=== PATIENT | male | born 1980 | race African-American/Black ===

== ENCOUNTER 2016-11-10 07:53 | Emergency (ER) | payer MEDICAID ==
[~2016-11-10] VITALS: Ht 198.1 cm; Wt 127.5 kg
[2016-11-10] MEDS ORDERED: MORPHINE SULFATE 4 MG/ML CPJ (NOT FOR IM USE) IV STA (08:42)
[2016-11-10] MEDS ORDERED: SODIUM CHLORIDE 0.9% 1,000 ML IV ONE (08:42)
[2016-11-10] MEDS ORDERED: ONDANSETRON HCL 4MG/2ML VIAL IV STA (08:42)
[2016-11-10 09:02] LABS: BASOPHILS % 0.7 % (0.0-2.0); HEMATOCRIT. 39.7 % (42.0-52.0); HEMOGLOBIN. 13.6 g/dL (14.0-18.0); LYMPHOCYTES % 29.5 % (20.0-50.0); MEAN CORPUSCULAR HEMOGLOBIN 32.3 pg (28.0-32.0); MEAN CORPUSCULAR HGB CONC 34.1 g/dL (31.0-37.0); MEAN CORPUSCULAR VOLUME 94.6 fL (80.0-94.0); MEAN PLATELET VOLUME 8.9 fl (7.4-10.4); MONOCYTES % 7.7 % (2.0-8.0); NEUTROPHILS % 61.1 % (40.0-76.0); PLATELET 195 x1000/uL (130-400); RED CELL DISTRIBUTION WIDTH 13.7 % (11.6-14.6); WHITE BLOOD COUNT 4.6 x1000/uL (4.5-11.0)
[2016-11-10 09:04] LABS: CHLORIDE 112 mEq/L (98-107); INDEX HEMOLYSI 1 (1-3); INDEX ICTERIC 1 (1-4); INDEX LIPEMIC 1 (1-3)
[2016-11-10 09:07] LABS: INR 0.9; PROTHROMBIN TIME 9.7 sec
[2016-11-10 09:10] LABS: ALBUMIN 3.4 g/dL (3.4-5.0); ANION GAP 11; CARBON DIOXIDE 26 mEq/L (21-32); LIPASE 264 IU/L (73-393); UREA NITROGEN BLOOD 14 mg/dL (7-21)
[2016-11-10 09:13] LABS: ALANINE AMINOTRANSFERASE 39 IU/L (13-61); AMYLASE 109 IU/L (25-115); eGFR > 60 mL/min (>60)
[2016-11-10] MEDS ORDERED: MORPHINE SULFATE 4 MG/ML CPJ (NOT FOR IM USE) IV ONE (09:30)
[2016-11-10] MEDS ORDERED: MAGNESIUM/ALUMINUM HYDROXIDE/SIMETHICONE 30ML UDC PO NR (09:30)
[2016-11-10] MEDS ORDERED: FAMOTIDINE 20MG/2ML VIAL IV NR (09:30)
[2016-11-10 09:40] VITALS: BP 151/95
[2016-11-10] MEDS ORDERED: DICYCLOMINE 10 MG/5 ML ORAL SYR PO STA (11:31)
[2016-11-10] MEDS ORDERED: ONDANSETRON 4MG ODT PO ONE (12:00)
== END 2016-11-10 12:42 | disposition home or self-care (01) ==
LOC: ER 09:54
DX: R10.13 Epigastric pain (principal); R11.10 Vomiting, unspecified; R19.7 Diarrhea, unspecified; F17.210 Nicotine dependence, cigarettes, uncomplicated; F12.90 Cannabis use, unspecified, uncomplicated; Z88.6 Allergy status to analgesic agent; Z87.828 Personal history of other (healed) physical injury and trauma
CPT/HCPCS: 36415; 76705; 80053; 82150; 83690; 85025; 85610; 96361; 96374; 96375; 96376; 99285; J2270; J2405; J3490; J7030; Q0162; Z7610

== ENCOUNTER 2017-03-14 11:08 | Emergency (ER) | payer MEDICAID ==
[~2017-03-14] VITALS: Ht 175.3 cm; Wt 85.0 kg
[2017-03-14] MEDS ORDERED: SODIUM CHLORIDE 0.9% 1,000 ML IV ONE (11:44)
[2017-03-14] MEDS ORDERED: ONDANSETRON HCL 4MG/2ML VIAL IV STA (11:44)
[2017-03-14 12:39] LABS: BASOPHILS % 0.3 % (0.0-2.0); EOSINOPHILS % 0.1 % (0.0-5.0); HEMOGLOBIN. 13.2 g/dL (14.0-18.0); LYMPHOCYTES % 17.8 % (20.0-50.0); MEAN CORPUSCULAR HEMOGLOBIN 31.8 pg (28.0-32.0); MEAN CORPUSCULAR VOLUME 93.9 fL (80.0-94.0); MEAN PLATELET VOLUME 8.1 fl (7.4-10.4); MONOCYTES % 5.7 % (2.0-8.0); NEUTROPHILS % 76.1 % (40.0-76.0); PLATELET 197 x1000/uL (130-400); RED BLOOD CELL COUNT 4.15 mill/uL (4.7-6.1); RED CELL DISTRIBUTION WIDTH 13.5 % (11.6-14.6)
[2017-03-14 12:50] LABS: CARBON DIOXIDE 28 mEq/L (21-32); CHLORIDE 107 mEq/L (98-107)
[2017-03-14] MEDS ORDERED: METOCLOPRAMIDE HCL 10MG/2ML VIAL IV ONE (13:45)
[2017-03-14] MEDS ORDERED: ONDANSETRON HCL 4MG/2ML VIAL IV ONE (13:45)
[2017-03-14] MEDS ORDERED: KETOROLAC 30MG/ML VIAL IV ONE (14:30)
[2017-03-14 14:50] LABS: CLARITY URINE CLOUDY (CLEAR); COLOR URINE YELLOW (YELLOW); GLUCOSE URINE NEGATIVE (NEGATIVE); KETONES URINE 1+ (NEGATIVE); LEUKOCYTE ESTERASE URINE NEGATIVE (NEGATIVE); NITRITE URINE NEGATIVE (NEGATIVE); OCCULT BLOOD URINE NEGATIVE (NEGATIVE); PH URINE 8.5 (4.5-8.0); PROTEIN URINE NEGATIVE (NEGATIVE); SPECIFIC GRAVITY URINE 1.019 (1.005-1.030)
[2017-03-14 15:00] VITALS: BP 132/84
[2017-03-14 15:12] LABS: *AMPHETAMINES SCREEN URINE NEGATIVE (NEGATIVE); *BARBITURATES SCREEN URINE NEGATIVE (NEGATIVE); *BENZODIAZEPINES SCREEN URINE PRESUMTIVE POSITIVE (NEGATIVE); *COCAINE SCREEN URINE PRESUMTIVE POSITIVE (NEGATIVE); CANNABINOID URINE SCREEN PRESUMTIVE POSITIVE (NEGATIVE); METHADONE URINE SCREEN NEGATIVE (NEGATIVE); OPIATES URINE SCREEN NEGATIVE (NEGATIVE); PHENCYCLIDINE URINE SCREEN NEGATIVE (NEGATIVE)
== END 2017-03-14 16:11 | disposition home or self-care (01) ==
LOC: ER 11:18
DX: G43.A0 Cyclical vomiting, in migraine, not intractable (principal); F12.10 Cannabis abuse, uncomplicated; R10.13 Epigastric pain; Z88.6 Allergy status to analgesic agent
CPT/HCPCS: 36415; 80053; 80305; 81001; 83690; 85025; 96374; 96375; 96376; 99284; G0482; J1885; J2405; J2765; J7030; Z7610

== ENCOUNTER 2017-05-11 08:06 | Inpatient (IN) | payer MEDICAID ==
[~2017-05-11] VITALS: Ht 198.1 cm; Wt 132.4 kg
[2017-05-11] MEDS ORDERED: ONDANSETRON HCL 4MG/2ML VIAL IV STA (08:15)
[2017-05-11] MEDS ORDERED: FAMOTIDINE 20MG/2ML VIAL IV STA (08:15)
[2017-05-11] MEDS ORDERED: SODIUM CHLORIDE 0.9% 1,000 ML IV ONE (08:15)
[2017-05-11] MEDS ORDERED: MORPHINE SULFATE 4 MG/ML CPJ (NOT FOR IM USE) IV STA (08:15)
[2017-05-11 08:39] LABS: BASOPHILS % 0.3 % (0.0-2.0); HEMATOCRIT. 35.5 % (42.0-52.0); HEMOGLOBIN. 12.1 g/dL (14.0-18.0); LYMPHOCYTES % 12.2 % (20.0-50.0); MEAN CORPUSCULAR VOLUME 93.9 fL (80.0-94.0); MEAN PLATELET VOLUME 8.2 fl (7.4-10.4); MONOCYTES % 6.1 % (2.0-8.0); NEUTROPHILS % 81.4 % (40.0-76.0); PLATELET 195 x1000/uL (130-400); RED BLOOD CELL COUNT 3.78 mill/uL (4.7-6.1); RED CELL DISTRIBUTION WIDTH 13.7 % (11.6-14.6)
[2017-05-11 08:56] LABS: CARBON DIOXIDE 27 mEq/L (21-32); CHLORIDE 106 mEq/L (98-107); ETHANOL BLOOD < 10 mg/dL; TROPONIN I < 0.02 ng/mL (0.00-0.04)
[2017-05-11] MEDS ORDERED: CEFTRIAXONE 1 G PREMIX 50 ML IV ONE (09:15)
[2017-05-11] MEDS ORDERED: METRONIDAZOLE 500 MG PREMIX 100 ML IV ONE (09:15)
[2017-05-11] MEDS ORDERED: SODIUM CHLORIDE 0.9% 1000ML BAG (SEPSIS BOLUS) IV ONE (09:15)
[2017-05-11 09:19] LABS: PROTHROMBIN TIME 10.8 sec (9.4-11.6)
[2017-05-11 11:11] LABS: CLARITY URINE CLEAR (CLEAR); COLOR URINE YELLOW (YELLOW); GLUCOSE URINE NEGATIVE (NEGATIVE); KETONES URINE NEGATIVE (NEGATIVE); LEUKOCYTE ESTERASE URINE NEGATIVE (NEGATIVE); NITRITE URINE NEGATIVE (NEGATIVE); OCCULT BLOOD URINE NEGATIVE (NEGATIVE); PH URINE >=9.0 (4.5-8.0); PROTEIN URINE NEGATIVE (NEGATIVE); SPECIFIC GRAVITY URINE 1.017 (1.005-1.030); UROBILINOGEN URINE 0.2 E.U./dL (0.2-1.0)
[2017-05-11] MEDS ORDERED: IOHEXOL-300 100 ML BOTTLE ONE (11:53)
[2017-05-11 12:02] LABS: *AMPHETAMINES SCREEN URINE NEGATIVE (NEGATIVE); *BARBITURATES SCREEN URINE NEGATIVE (NEGATIVE); *BENZODIAZEPINES SCREEN URINE NEGATIVE (NEGATIVE); *COCAINE SCREEN URINE PRESUMTIVE POSITIVE (NEGATIVE); CANNABINOID URINE SCREEN PRESUMTIVE POSITIVE (NEGATIVE); METHADONE URINE SCREEN NEGATIVE (NEGATIVE); OPIATES URINE SCREEN NEGATIVE (NEGATIVE); PHENCYCLIDINE URINE SCREEN NEGATIVE (NEGATIVE)
[2017-05-11] MEDS ORDERED: SODIUM CHLORIDE 0.9% 1,000 ML IV SCH (12:52)
[2017-05-11] MEDS ORDERED: ACETAMINOPHEN 325MG TABLET PO PRN (14:15)
[2017-05-11] MEDS ORDERED: IPRATROPIUM/ALBUTEROL 0.5-3(2.5)MG/3ML NEB INH PRN (14:15)
[2017-05-11] MEDS ORDERED: HYDROCODONE/ACETAMINOPHEN 5/325MG TABLET PO PRN (14:15)
[2017-05-11] MEDS ORDERED: ONDANSETRON HCL 4MG/2ML VIAL IV PRN (14:15)
[2017-05-11] MEDS ORDERED: CLONIDINE 0.1MG TABLET PO PRN (14:15)
[2017-05-11] MEDS ORDERED: DIPHENHYDRAMINE 50MG/ML VIAL IV PRN (14:15)
[2017-05-11] MEDS ORDERED: PANTOPRAZOLE SODIUM 40 MG/VIAL IV SCH (14:15)
[2017-05-11] MEDS ORDERED: MORPHINE SULFATE 4 MG/ML CPJ (NOT FOR IM USE) IV PRN (14:15)
[2017-05-11 16:00] VITALS: BP 122/68
[2017-05-11] MEDS ORDERED: SODIUM CHLORIDE 0.9% 500 ML IV NR (16:00)
[2017-05-11 16:40] VITALS: BP 122/68
[2017-05-11] MEDS: METOCLOPRAMIDE HCL 10MG/2ML VIAL IV SCH (18:39)
[2017-05-11] MEDS: SODIUM CHLORIDE 0.9% 1,000 ML IV SCH (18:40)
[2017-05-11 20:00] VITALS: BP 111/64
[2017-05-12] VITALS: BP 109/68
[2017-05-12] MEDS: METOCLOPRAMIDE HCL 10MG/2ML VIAL IV SCH ×2 (00:37→05:42)
[2017-05-12 04:00] VITALS: BP 110/57
[2017-05-12] MEDS: SODIUM CHLORIDE 0.9% 1,000 ML IV SCH (05:42)
[2017-05-12 06:39] LABS: BASOPHILS % 0.3 % (0.0-2.0); EOSINOPHILS % 0.2 % (0.0-5.0); HEMATOCRIT. 36.4 % (42.0-52.0); HEMOGLOBIN. 12.3 g/dL (14.0-18.0); LYMPHOCYTES % 23.2 % (20.0-50.0); MEAN CORPUSCULAR HEMOGLOBIN 31.6 pg (28.0-32.0); MEAN CORPUSCULAR VOLUME 93.6 fL (80.0-94.0); MEAN PLATELET VOLUME 8.5 fl (7.4-10.4); MONOCYTES % 9.1 % (2.0-8.0); NEUTROPHILS % 67.2 % (40.0-76.0); PLATELET 183 x1000/uL (130-400); RED BLOOD CELL COUNT 3.89 mill/uL (4.7-6.1); RED CELL DISTRIBUTION WIDTH 13.4 % (11.6-14.6)
[2017-05-12 07:34] LABS: CARBON DIOXIDE 26 mEq/L (21-32); CHLORIDE 106 mEq/L (98-107); HDL CHOLESTEROL 43 mg/dL (40-59); LDL CHOLESTEROL 142 mg/dL (5-100)
[2017-05-12] MEDS ORDERED: POTASSIUM CHLORIDE 20MEQ/PACKET PO SCH (09:00)
== END 2017-05-12 09:10 | disposition left against medical advice (07) | DRG 251 ==
LOC: ER 08:19 → 5WST 12:53 → EDBEDREQ 12:57 → ENRESERV 13:36
PROVIDERS: ADMIT Internal Medicine; ATTEND Internal Medicine
DX: R10.9 Unspecified abdominal pain (principal); E87.2 Acidosis; I10 Essential (primary) hypertension; R73.9 Hyperglycemia, unspecified; D64.9 Anemia, unspecified; F19.10 Other psychoactive substance abuse, uncomplicated; R19.7 Diarrhea, unspecified; R11.2 Nausea with vomiting, unspecified; Z53.21 Procedure and treatment not carried out due to patient leaving prior to being seen by health care provider
CPT/HCPCS: 36415; 71010; 74177; 80053; 80061; 80305; 81003; 82270; 83036; 83605; 83690; 83880; 84484; 85025; 85610; 87015; 87040; 87045; 87086; 87427; 87449; 87493; 89055; 93005; 96361; 96365; 96366; 96367; 96375; 99291; C9113; G0482; J0696; J2270; J2405; J2765; J3490; J7030; Q9967

== ENCOUNTER 2017-05-12 10:27 | Inpatient (IN) | payer MEDICAID ==
[~2017-05-12] VITALS: Ht 198.1 cm; Wt 136.1 kg
[2017-05-12] MEDS ORDERED: FAMOTIDINE 20MG/2ML VIAL IV STA (12:13)
[2017-05-12] MEDS ORDERED: MORPHINE SULFATE 4 MG/ML CPJ (NOT FOR IM USE) IV STA (12:13)
[2017-05-12] MEDS ORDERED: ONDANSETRON HCL 4MG/2ML VIAL IV STA (12:13)
[2017-05-12] MEDS ORDERED: SODIUM CHLORIDE 0.9% 1,000 ML IV ONE (12:13)
[2017-05-12 13:01] LABS: BASOPHILS % 0.2 % (0.0-2.0); HEMATOCRIT. 36.4 % (42.0-52.0); HEMOGLOBIN. 12.4 g/dL (14.0-18.0); LYMPHOCYTES % 13.4 % (20.0-50.0); MEAN CORPUSCULAR HEMOGLOBIN 31.7 pg (28.0-32.0); MEAN CORPUSCULAR VOLUME 92.9 fL (80.0-94.0); MEAN PLATELET VOLUME 8.3 fl (7.4-10.4); NEUTROPHILS % 80.4 % (40.0-76.0); PLATELET 181 x1000/uL (130-400); RED BLOOD CELL COUNT 3.91 mill/uL (4.7-6.1); RED CELL DISTRIBUTION WIDTH 13.3 % (11.6-14.6)
[2017-05-12 13:07] LABS: CHLORIDE 108 mEq/L (98-107)
[2017-05-12 13:09] LABS: INR 1.1; PROTHROMBIN TIME 11.7 sec (9.4-11.6)
[2017-05-12 13:16] LABS: CARBON DIOXIDE 25 mEq/L (21-32)
[2017-05-12] MEDS ORDERED: KCL 10MEQ/50ML PREMIX 50 ML IV ONE (14:00)
[2017-05-12] MEDS ORDERED: METOCLOPRAMIDE HCL 10MG/2ML VIAL IV ONE (16:00)
[2017-05-12 16:30] LABS: CLARITY URINE CLEAR (CLEAR); COLOR URINE YELLOW (YELLOW); GLUCOSE URINE NEGATIVE (NEGATIVE); KETONES URINE 1+ (NEGATIVE); LEUKOCYTE ESTERASE URINE NEGATIVE (NEGATIVE); NITRITE URINE NEGATIVE (NEGATIVE); OCCULT BLOOD URINE NEGATIVE (NEGATIVE); PROTEIN URINE NEGATIVE (NEGATIVE); SPECIFIC GRAVITY URINE 1.014 (1.005-1.030); UROBILINOGEN URINE 0.2 E.U./dL (0.2-1.0)
[2017-05-12] MEDS ORDERED: KETOROLAC 30MG/ML VIAL IV ONE (16:30)
[2017-05-12 16:59] LABS: *AMPHETAMINES SCREEN URINE NEGATIVE (NEGATIVE); *BARBITURATES SCREEN URINE NEGATIVE (NEGATIVE); *BENZODIAZEPINES SCREEN URINE NEGATIVE (NEGATIVE); *COCAINE SCREEN URINE PRESUMTIVE POSITIVE (NEGATIVE); CANNABINOID URINE SCREEN PRESUMTIVE POSITIVE (NEGATIVE); METHADONE URINE SCREEN NEGATIVE (NEGATIVE); OPIATES URINE SCREEN PRESUMTIVE POSITIVE (NEGATIVE); PHENCYCLIDINE URINE SCREEN NEGATIVE (NEGATIVE)
[2017-05-12 22:35] VITALS: BP 138/75
[2017-05-12 23:18] VITALS: BP 138/75
[2017-05-12] MEDS ORDERED: LORAZEPAM 2MG/ML CPJ IV PRN (23:45)
[2017-05-12] MEDS ORDERED: HYDROCODONE/ACETAMINOPHEN 5/325MG TABLET PO PRN (23:45)
[2017-05-12] MEDS ORDERED: SODIUM CHLORIDE 0.9% 1,000 ML IV SCH (23:45)
[2017-05-12] MEDS ORDERED: MORPHINE SULFATE 4 MG/ML CPJ (NOT FOR IM USE) IV PRN (23:45)
[2017-05-12] MEDS ORDERED: ONDANSETRON HCL 4MG/2ML VIAL IV PRN (23:45)
[2017-05-12] MEDS ORDERED: ACETAMINOPHEN 325MG TABLET PO PRN (23:45)
[2017-05-13 04:00] VITALS: BP 134/92
[2017-05-13] MEDS: POTASSIUM CHLORIDE 20MEQ TABLET SR PO SCH ×2 (05:37→09:00)
[2017-05-13 08:00] VITALS: BP 160/100
[2017-05-13] MEDS ORDERED: ENOXAPARIN 40MG/0.4ML SYR SUBCUT SCH (09:00)
[2017-05-13] MEDS ORDERED: FOLIC ACID 1MG TABLET PO SCH (09:00)
[2017-05-13 12:00] VITALS: BP 140/74
[2017-05-13 14:17] VITALS: BP 130/92
== END 2017-05-13 14:30 | disposition home or self-care (01) | DRG 251 ==
LOC: ER 10:46 → EDBEDREQ 14:14 → 6EST 14:19 → EDBEDREQTM 14:21 → EDBEDREQ 14:21 → ENRESERV 18:23
PROVIDERS: ADMIT Internal Medicine Nephrology; ATTEND Internal Medicine Nephrology
DX: R10.9 Unspecified abdominal pain (principal); E87.5 Hyperkalemia; I10 Essential (primary) hypertension; F14.10 Cocaine abuse, uncomplicated; F11.10 Opioid abuse, uncomplicated; F12.10 Cannabis abuse, uncomplicated; Z96.649 Presence of unspecified artificial hip joint; Z87.891 Personal history of nicotine dependence; Z72.89 Other problems related to lifestyle
CPT/HCPCS: 36415; 80053; 80305; 81003; 83605; 83690; 85025; 85610; 99285; J1650; J1885; J2270; J2405; J2765; J3480; J3490; J7030

== ENCOUNTER 2018-07-16 06:28 | Emergency (ER) | payer MEDICAID ==
[~2018-07-16] VITALS: Ht 198.1 cm; Wt 132.0 kg
[2018-07-16] MEDS ORDERED: FAMOTIDINE 20MG/2ML VIAL IV STA (07:17)
[2018-07-16] MEDS ORDERED: MORPHINE SULFATE 4 MG/ML CPJ (NOT FOR IM USE) IV STA (07:17)
[2018-07-16] MEDS ORDERED: SODIUM CHLORIDE 0.9% 1,000 ML IV ONE (07:17)
[2018-07-16] MEDS ORDERED: METOCLOPRAMIDE HCL 10MG/2ML VIAL IV STA (07:17)
[2018-07-16 07:36] LABS: CLARITY URINE CLEAR (CLEAR); COLOR URINE YELLOW (YELLOW); KETONES URINE NEGATIVE (NEGATIVE); LEUKOCYTE ESTERASE URINE NEGATIVE (NEGATIVE); NITRITE URINE NEGATIVE (NEGATIVE); OCCULT BLOOD URINE NEGATIVE (NEGATIVE); PH URINE 7.5 (4.5-8.0); PROTEIN URINE TRACE (NEGATIVE); SPECIFIC GRAVITY URINE 1.022 (1.005-1.030)
[2018-07-16] MEDS ORDERED: MORPHINE SULFATE 10 MG/ML CPJ IV STA (08:40)
[2018-07-16 09:07] LABS: BASOPHILS % 0.5 % (0.0-2.0); HEMATOCRIT. 40.2 % (42.0-52.0); HEMOGLOBIN. 13.8 g/dL (14.0-18.0); LYMPHOCYTES % 15.9 % (20.0-50.0); MEAN CORPUSCULAR HEMOGLOBIN 32.3 pg (28.0-32.0); MEAN CORPUSCULAR VOLUME 93.9 fL (80.0-94.0); MEAN PLATELET VOLUME 8.2 fl (7.4-10.4); MONOCYTES % 5.5 % (2.0-8.0); NEUTROPHILS % 78.1 % (40.0-76.0); PLATELET 259 x1000/uL (130-400); RED BLOOD CELL COUNT 4.28 mill/uL (4.7-6.1); RED CELL DISTRIBUTION WIDTH 13.5 % (11.6-14.6)
[2018-07-16 09:11] LABS: CHLORIDE 105 mEq/L (98-107)
[2018-07-16 09:13] LABS: INR 1.1
[2018-07-16] MEDS ORDERED: IOHEXOL-300 100 ML BOTTLE ONE (09:55)
[2018-07-16] MEDS ORDERED: KETOROLAC 30MG/ML VIAL IV ONE (10:15)
[2018-07-16 11:30] VITALS: BP 118/64
== END 2018-07-16 11:37 | disposition home or self-care (01) ==
LOC: ER 06:28
DX: N39.0 Urinary tract infection, site not specified (principal); R10.84 Generalized abdominal pain; R11.2 Nausea with vomiting, unspecified; R16.0 Hepatomegaly, not elsewhere classified; J45.909 Unspecified asthma, uncomplicated; I10 Essential (primary) hypertension
CPT/HCPCS: 36415; 74177; 80053; 81003; 83690; 85025; 85610; 86850; 86900; 86901; 87086; 96361; 96374; 96375; 99284; J1885; J2270; J2765; J3490; J7030; Q9967

== ENCOUNTER 2018-11-11 08:42 | Inpatient (IN) | payer MEDICAID ==
[~2018-11-11] VITALS: Ht 198.1 cm; Wt 135.2 kg
[2018-11-11] MEDS ORDERED: METOCLOPRAMIDE HCL 10MG/2ML VIAL IV STA (09:06)
[2018-11-11] MEDS ORDERED: SODIUM CHLORIDE 0.9% 1,000 ML IV ONE (09:06)
[2018-11-11 09:44] LABS: BASOPHILS % 0.4 % (0.0-2.0); EOSINOPHILS % 0.3 % (0.0-5.0); HEMATOCRIT. 39.8 % (42.0-52.0); HEMOGLOBIN. 13.6 g/dL (14.0-18.0); LYMPHOCYTES % 19.9 % (20.0-50.0); MEAN CORPUSCULAR HEMOGLOBIN 32.6 pg (28.0-32.0); MEAN CORPUSCULAR VOLUME 95.1 fL (80.0-94.0); MEAN PLATELET VOLUME 8.6 fl (7.4-10.4); MONOCYTES % 6.9 % (2.0-8.0); NEUTROPHILS % 72.5 % (40.0-76.0); PLATELET 189 x1000/uL (130-400); RED BLOOD CELL COUNT 4.18 mill/uL (4.7-6.1); RED CELL DISTRIBUTION WIDTH 13.8 % (11.6-14.6)
[2018-11-11 09:46] LABS: CHLORIDE 109 mEq/L (98-107)
[2018-11-11 09:47] LABS: PROTHROMBIN TIME 9.9 sec (9.6-11.0)
[2018-11-11] MEDS ORDERED: KETOROLAC 30MG/ML VIAL IV ONE (10:15)
[2018-11-11 10:33] LABS: CLARITY URINE CLEAR (CLEAR); COLOR URINE YELLOW (YELLOW); KETONES URINE NEGATIVE (NEGATIVE); LEUKOCYTE ESTERASE URINE 1+ (NEGATIVE); NITRITE URINE NEGATIVE (NEGATIVE); OCCULT BLOOD URINE NEGATIVE (NEGATIVE); PH URINE >=9.0 (4.5-8.0); PROTEIN URINE NEGATIVE (NEGATIVE); SPECIFIC GRAVITY URINE 1.018 (1.005-1.030); UROBILINOGEN URINE 0.2 E.U./dL (0.2-1.0)
[2018-11-11] MEDS ORDERED: LORAZEPAM 2MG/ML CPJ IV ONE (11:00)
[2018-11-11] MEDS ORDERED: MORPHINE SULFATE 4 MG/ML CPJ (NOT FOR IM USE) IV STA ×2 (13:38→14:11)
[2018-11-11] MEDS ORDERED: ONDANSETRON HCL 4MG/2ML INJ IV STA ×2 (13:38→14:11)
[2018-11-11] MEDS ORDERED: CEFTRIAXONE 1 G PREMIX 50 ML IV ONE (14:00)
[2018-11-11 19:35] VITALS: BP 172/83
[2018-11-11 20:00] VITALS: BP 172/83
[2018-11-11] MEDS ORDERED: CLONIDINE 0.1MG TABLET PO PRN ×2 (20:45→21:00)
[2018-11-11] MEDS ORDERED: HYDRALAZINE 10 MG in SODIUM CHLORIDE 0.9% 49.5 ML IV PRN (20:45)
[2018-11-11] MEDS ORDERED: MORPHINE SULFATE 2 MG/ML CPJ (NOT FOR IM USE) IV PRN (20:45)
[2018-11-11] MEDS ORDERED: IPRATROPIUM/ALBUTEROL 0.5-3(2.5)MG/3ML NEB INH PRN (21:00)
[2018-11-11] MEDS ORDERED: HYDROCODONE/ACETAMINOPHEN 5/325MG TABLET PO PRN (21:00)
[2018-11-11] MEDS ORDERED: PANTOPRAZOLE SODIUM 40 MG/VIAL IV SCH (21:00)
[2018-11-11] MEDS ORDERED: LORAZEPAM 0.5MG TABLET PO PRN (21:00)
[2018-11-11] MEDS: ONDANSETRON HCL 4MG/2ML INJ IV PRN (21:16)
[2018-11-11] MEDS: MORPHINE SULFATE 4 MG/ML CPJ (NOT FOR IM USE) IV PRN (21:16)
[2018-11-11 23:38] LABS: *COCAINE SCREEN URINE PRESUMTIVE POSITIVE (NEGATIVE)
[2018-11-11 23:39] LABS: *AMPHETAMINES SCREEN URINE NEGATIVE (NEGATIVE); *BARBITURATES SCREEN URINE NEGATIVE (NEGATIVE); CANNABINOID URINE SCREEN PRESUMTIVE POSITIVE (NEGATIVE); METHADONE URINE SCREEN NEGATIVE (NEGATIVE); OPIATES URINE SCREEN PRESUMTIVE POSITIVE (NEGATIVE); PHENCYCLIDINE URINE SCREEN NEGATIVE (NEGATIVE)
[2018-11-11 23:40] LABS: *BENZODIAZEPINES SCREEN URINE NEGATIVE (NEGATIVE)
[2018-11-12] VITALS: BP 140/66
[2018-11-12] MEDS ORDERED: ZOLPIDEM TARTRATE 5MG TABLET PO PRN
[2018-11-12] MEDS ORDERED: AMLO5TAB4 PO (01:04)
[2018-11-12] MEDS: ONDANSETRON HCL 4MG/2ML INJ IV PRN (03:38)
[2018-11-12] MEDS: MORPHINE SULFATE 4 MG/ML CPJ (NOT FOR IM USE) IV PRN (03:38)
[2018-11-12 04:00] VITALS: BP 173/82
[2018-11-12 05:18] LABS: BASOPHILS % 0.2 % (0.0-2.0); HEMATOCRIT. 41.8 % (42.0-52.0); HEMOGLOBIN. 14.2 g/dL (14.0-18.0); LYMPHOCYTES % 16.3 % (20.0-50.0); MEAN CORPUSCULAR HEMOGLOBIN 32.4 pg (28.0-32.0); MEAN CORPUSCULAR VOLUME 95.2 fL (80.0-94.0); MEAN PLATELET VOLUME 8.9 fl (7.4-10.4); MONOCYTES % 8.8 % (2.0-8.0); NEUTROPHILS % 74.7 % (40.0-76.0); PLATELET 218 x1000/uL (130-400); RED BLOOD CELL COUNT 4.39 mill/uL (4.7-6.1); RED CELL DISTRIBUTION WIDTH 14.1 % (11.6-14.6)
[2018-11-12 07:40] LABS: CHLORIDE 105 mEq/L (98-107)
[2018-11-12 08:00] VITALS: BP 104/65
[2018-11-12] MEDS ORDERED: POTASSIUM CHLORIDE 20MEQ TABLET SR PO NR (09:24)
[2018-11-12 12:00] VITALS: BP 111/74
[2018-11-12 13:22] LABS: HEPATITIS B SURFACE ANTIGEN NEGATIVE
[2018-11-12 13:52] LABS: HEPATITIS A AB IGM NEGATIVE (NEGATIVE)
[2018-11-13 05:29] LABS: HIV SCREEN 4G Non Reactive (Non Reactive)
[2018-11-24 06:10] LABS: BARBITURATE SCREEN Negative ug/mL (Cutoff:0.1); BENZODIAZEPINE SCREEN Negative ng/mL (Cutoff:20); OPIATES SCREEN ++POSITIVE++ ng/mL (Cutoff:5); PHENCYCLIDINE SCREEN Negative ng/mL (Cutoff:8)
== END 2018-11-12 11:50 | disposition left against medical advice (07) | DRG 241 ==
LOC: ER 08:42 → 6EST 13:51 → EDBEDREQSVC 14:03 → EDBEDREQ 14:03 → EDBEDREQTM 14:03 → ENRESERV 15:23
PROVIDERS: ADMIT Internal Medicine; ATTEND Internal Medicine
DX: K29.20 Alcoholic gastritis without bleeding (principal); K75.9 Inflammatory liver disease, unspecified; E11.9 Type 2 diabetes mellitus without complications; F12.90 Cannabis use, unspecified, uncomplicated; I10 Essential (primary) hypertension; J45.909 Unspecified asthma, uncomplicated; Z91.19 Patient's noncompliance with other medical treatment and regimen; Z87.81 Personal history of (healed) traumatic fracture
CPT/HCPCS: 36415; 71045; 74176; 76700; 80048; 80076; 80305; 80307; 83036; 83880; 84484; 86141; 86705; 86709; 86803; 87077; 87340; 87389; 93005; 96361; 96365; 96375; 99285; C9113; J0696; J1885; J2060; J2270; J2405; J2765; J7030

== ENCOUNTER 2019-01-26 18:51 | Inpatient (IN) | payer MEDICAID ==
[~2019-01-26] VITALS: Ht 198.1 cm; Wt 127.0 kg
[~2019-01-26 18:51] MED LIST: AMLO5TAB4 PO
[2019-01-26] MEDS ORDERED: ONDANSETRON HCL 4MG/2ML INJ IV STA (19:38)
[2019-01-26] MEDS ORDERED: MORPHINE SULFATE 4 MG/ML CPJ (NOT FOR IM USE) IV STA (19:38)
[2019-01-26] MEDS ORDERED: KETOROLAC 30MG/ML VIAL IV STA (19:38)
[2019-01-26] MEDS ORDERED: SODIUM CHLORIDE 0.9% 1,000 ML IV ONE ×2 (19:38→22:15)
[2019-01-26 20:17] LABS: CHLORIDE 105 mEq/L (98-107)
[2019-01-26 20:18] LABS: BASOPHILS % 0.4 % (0.0-2.0); HEMATOCRIT. 39.3 % (42.0-52.0); HEMOGLOBIN. 13.7 g/dL (14.0-18.0); LYMPHOCYTES % 10.3 % (20.0-50.0); MEAN CORPUSCULAR HEMOGLOBIN 32.9 pg (28.0-32.0); MEAN CORPUSCULAR VOLUME 94.7 fL (80.0-94.0); MEAN PLATELET VOLUME 8.7 fl (7.4-10.4); MONOCYTES % 4.8 % (2.0-8.0); NEUTROPHILS % 84.5 % (40.0-76.0); PLATELET 199 x1000/uL (130-400); RED BLOOD CELL COUNT 4.15 mill/uL (4.7-6.1); RED CELL DISTRIBUTION WIDTH 13.8 % (11.6-14.6)
[2019-01-26 20:20] LABS: INR 1.1; PROTHROMBIN TIME 11.6 sec (9.6-11.0)
[2019-01-27] MEDS ORDERED: MORPHINE SULFATE 4 MG/ML CPJ (NOT FOR IM USE) IV ONE
[2019-01-27 03:45] VITALS: BP 116/75
[2019-01-27 04:00] VITALS: BP 120/62
== END 2019-01-27 06:49 | disposition left against medical advice (07) | DRG 251 ==
LOC: ER 18:51 → 6EST 01-27 00:05 → EDBEDREQTM 01-27 00:09 → EDBEDREQSVC 01-27 00:09 → EDBEDREQDT 01-27 00:09 → EDBEDREQ 01-27 00:09 → ENRESERV 01-27 02:06
PROVIDERS: ADMIT Internal Medicine; ATTEND Internal Medicine
DX: R10.9 Unspecified abdominal pain (principal); I10 Essential (primary) hypertension; J45.909 Unspecified asthma, uncomplicated; Z53.21 Procedure and treatment not carried out due to patient leaving prior to being seen by health care provider
CPT/HCPCS: 36415; 74176; 84484; 93005; 96361; 96374; 96375; 99285; J1885; J2270; J2405; J7030

== ENCOUNTER 2020-09-21 11:54 | Emergency (ER) | payer MEDICAID ==
[~2020-09-21] VITALS: Ht 195.6 cm; Wt 127.0 kg
[2020-09-21] MEDS ORDERED: MORPHINE SULFATE 4 MG/ML CPJ (NOT FOR IM USE) IV STA (12:17)
[2020-09-21] MEDS ORDERED: ONDANSETRON HCL 4MG/2ML INJ IV STA (12:17)
[2020-09-21] MEDS ORDERED: SODIUM CHLORIDE 0.9% 1,000 ML IV ONE (12:30)
[2020-09-21 12:46] LABS: BASOPHILS % 0.3 % (0.0-2.0); HEMATOCRIT. 41.7 % (42.0-52.0); MEAN CORPUSCULAR HEMOGLOBIN 31.7 pg (28.0-32.0); MEAN CORPUSCULAR VOLUME 94.4 fL (80.0-94.0); MEAN PLATELET VOLUME 8.7 fl (7.4-10.4); MONOCYTES % 5.6 % (2.0-8.0); NEUTROPHILS % 82.1 % (40.0-76.0); PLATELET 221 x1000/uL (130-400); RED BLOOD CELL COUNT 4.41 mill/uL (4.7-6.1); RED CELL DISTRIBUTION WIDTH 13.3 % (11.6-14.6)
[2020-09-21] MEDS ORDERED: METOCLOPRAMIDE HCL 10MG/2ML VIAL IV ONE (13:30)
[2020-09-21 14:29] LABS: CLARITY URINE CLEAR (CLEAR); COLOR URINE YELLOW (YELLOW); KETONES URINE TRACE (NEGATIVE); LEUKOCYTE ESTERASE URINE NEGATIVE (NEGATIVE); NITRITE URINE NEGATIVE (NEGATIVE); OCCULT BLOOD URINE NEGATIVE (NEGATIVE); PH URINE >=9.0 (4.5-8.0); PROTEIN URINE 1+ (NEGATIVE); SPECIFIC GRAVITY URINE 1.022 (1.005-1.030)
[2020-09-21 14:56] LABS: CHLORIDE 108 mEq/L (98-107)
[2020-09-21 14:57] LABS: INR 1.1; PROTHROMBIN TIME 11.5 sec (9.6-11.0)
[2020-09-21] MEDS ORDERED: ONDANSETRON HCL 4MG/2ML INJ IV ONE (16:45)
[2020-09-21] MEDS ORDERED: ONDA4TAB5 MT (18:20)
[2020-09-21] MEDS ORDERED: ONDANSETRON HCL 4MG/2ML INJ IV NR (18:30)
[2020-09-21] MEDS ORDERED: MORPHINE SULFATE 4 MG/ML CPJ (NOT FOR IM USE) IV NR (18:30)
[2020-09-21 18:45] VITALS: BP 158/74
== END 2020-09-21 19:04 | disposition home or self-care (01) ==
LOC: ER 11:54
DX: R10.9 Unspecified abdominal pain (principal); R11.2 Nausea with vomiting, unspecified; J45.909 Unspecified asthma, uncomplicated; I10 Essential (primary) hypertension; Z98.890 Other specified postprocedural states
CPT/HCPCS: 36415; 74177; 80053; 81003; 83690; 85025; 85610; 93005; 96361; 96374; 96375; 96376; 99285; J2270; J2405; J2765; J7030; Z7610

== ENCOUNTER 2021-04-22 12:11 | Inpatient (IN) | payer MEDICAID, OTHER ==
[~2021-04-22] VITALS: Ht 190.5 cm; Wt 125.0 kg
[~2021-04-22 12:11] MED LIST changes: +ONDA4TAB5 MT
[2021-04-22] MEDS ORDERED: KETOROLAC 30MG/ML VIAL IV STA (12:26)
[2021-04-22] MEDS ORDERED: MORPHINE SULFATE 4 MG/ML CPJ (NOT FOR IM USE) IV STA (12:26)
[2021-04-22] MEDS ORDERED: ONDANSETRON HCL 4MG/2ML INJ IV STA (12:26)
[2021-04-22] MEDS ORDERED: SODIUM CHLORIDE 0.9% 1,000 ML IV ONE ×2 (12:30→16:00)
[2021-04-22] MEDS ORDERED: MORPHINE SULFATE 2 MG/ML CPJ (NOT FOR IM USE) IV SCH (13:00)
[2021-04-22 13:05] LABS: BASOPHILS % 0.3 % (0.0-2.0); HEMATOCRIT. 40.2 % (42.0-52.0); HEMOGLOBIN. 14.1 g/dL (14.0-18.0); LYMPHOCYTES % 13.9 % (20.0-50.0); MEAN CORPUSCULAR HEMOGLOBIN 33.2 pg (28.0-32.0); MEAN CORPUSCULAR VOLUME 94.8 fL (80.0-94.0); MEAN PLATELET VOLUME 8.7 fl (7.4-10.4); MONOCYTES % 3.6 % (2.0-8.0); NEUTROPHILS % 82.2 % (40.0-76.0); PLATELET 225 x1000/uL (130-400); RED BLOOD CELL COUNT 4.24 mill/uL (4.7-6.1); RED CELL DISTRIBUTION WIDTH 13.9 % (11.6-14.6)
[2021-04-22 13:08] LABS: CHLORIDE 110 mEq/L (98-107)
[2021-04-22 13:17] LABS: CREATINE KINASE 282 IU/L (39-308)
[2021-04-22 14:20] LABS: CLARITY URINE CLEAR (CLEAR); COLOR URINE YELLOW (YELLOW); KETONES URINE 2+ (NEGATIVE); LEUKOCYTE ESTERASE URINE NEGATIVE (NEGATIVE); NITRITE URINE NEGATIVE (NEGATIVE); OCCULT BLOOD URINE NEGATIVE (NEGATIVE); PH URINE >=9.0 (4.5-8.0); PROTEIN URINE 1+ (NEGATIVE)
[2021-04-22 14:38] LABS: *BENZODIAZEPINES SCREEN URINE NEGATIVE (NEGATIVE); *COCAINE SCREEN URINE NEGATIVE (NEGATIVE); METHADONE URINE SCREEN NEGATIVE (NEGATIVE); OPIATES URINE SCREEN PRESUMTIVE POSITIVE (NEGATIVE); PHENCYCLIDINE URINE SCREEN NEGATIVE (NEGATIVE)
[2021-04-22 14:39] LABS: *AMPHETAMINES SCREEN URINE NEGATIVE (NEGATIVE); *BARBITURATES SCREEN URINE NEGATIVE (NEGATIVE); CANNABINOID URINE SCREEN PRESUMTIVE POSITIVE (NEGATIVE)
[2021-04-22] MEDS ORDERED: MORPHINE SULFATE 4 MG/ML CPJ (NOT FOR IM USE) IV ONE (15:30)
[2021-04-22] MEDS ORDERED: DIPHENHYDRAMINE 50MG/ML VIAL IV ONE (15:30)
[2021-04-22] MEDS ORDERED: METOCLOPRAMIDE HCL 10MG/2ML VIAL IV ONE (15:30)
[2021-04-22] MEDS ORDERED: MORPHINE SULFATE 2 MG/ML CPJ (NOT FOR IM USE) IV NR (15:45)
[2021-04-22] MEDS ORDERED: METRONIDAZOLE 500 MG PREMIX 100 ML IV ONE (16:00)
[2021-04-22] MEDS ORDERED: LEVOFLOXACIN 750MG PREMIX 150 ML IV ONE (16:00)
[2021-04-22] MEDS ORDERED: DEXTROSE 50% WATER 50ML SYRINGE IV PRN (19:15)
[2021-04-22] MEDS ORDERED: ACETAMINOPHEN 325MG TABLET PO PRN (19:15)
[2021-04-22] MEDS ORDERED: HYDRALAZINE 20MG/ML VIAL IV PRN (19:15)
[2021-04-22] MEDS ORDERED: IPRATROPIUM/ALBUTEROL 0.5-3(2.5)MG/3ML NEB HHN PRN (19:15)
[2021-04-22] MEDS ORDERED: GUAIFENESIN 200MG/10ML SUGAR FREE UDC PO PRN (19:15)
[2021-04-22] MEDS ORDERED: LORAZEPAM 2MG/ML CPJ IV PRN (19:15)
[2021-04-22] MEDS ORDERED: DIPHENHYDRAMINE 50MG/ML VIAL IV PRN (19:15)
[2021-04-22] MEDS ORDERED: CLONIDINE 0.1MG TABLET PO PRN (19:15)
[2021-04-22] MEDS ORDERED: DOCUSATE SODIUM 100MG CAPSULE PO PRN (19:15)
[2021-04-22] MEDS ORDERED: MORPHINE SULFATE 2 MG/ML CPJ (NOT FOR IM USE) IV PRN (19:15)
[2021-04-22] MEDS ORDERED: MAGNESIUM/ALUMINUM HYDROXIDE/SIMETHICONE 30ML UDC PO PRN (19:15)
[2021-04-22] MEDS ORDERED: HYDROCODONE/ACETAMINOPHEN 5/325MG TABLET PO PRN (19:15)
[2021-04-22] MEDS ORDERED: ONDANSETRON HCL 4MG/2ML INJ IV PRN (19:15)
[2021-04-22] MEDS ORDERED: DEXT 5%/0.45% NACL 1000ML 1,000 ML IV SCH (19:24)
[2021-04-22] MEDS ORDERED: NALOXONE HCL 0.4MG/ML VIAL IV PRN (19:30)
[2021-04-22] MEDS: INSULIN LISPRO 100 UNITS/ML SUBCUT SCH (21:00)
[2021-04-22] MEDS: BLOOD SUGAR DIAGNOSTIC STRIP TEST SCH (21:00)
[2021-04-22] MEDS: ENOXAPARIN 30MG/0.3ML SYR SUBCUT SCH (22:03)
[2021-04-22] MEDS: SODIUM CHLORIDE 0.9% INJ 3ML FLUSH IVF SCH (22:03)
[2021-04-23] MEDS ORDERED: METRONIDAZOLE 500 MG PREMIX 100 ML IV SCH ×2 (02:00→10:00)
[2021-04-23 05:10] LABS: BASOPHILS % 0.3 % (0.0-2.0); EOSINOPHILS % 0.1 % (0.0-5.0); HEMATOCRIT. 37.4 % (42.0-52.0); HEMOGLOBIN. 12.9 g/dL (14.0-18.0); LYMPHOCYTES % 24.4 % (20.0-50.0); MEAN CORPUSCULAR VOLUME 95.5 fL (80.0-94.0); MEAN PLATELET VOLUME 8.1 fl (7.4-10.4); MONOCYTES % 13.6 % (2.0-8.0); NEUTROPHILS % 61.6 % (40.0-76.0); PLATELET 209 x1000/uL (130-400); RED BLOOD CELL COUNT 3.91 mill/uL (4.7-6.1); RED CELL DISTRIBUTION WIDTH 13.9 % (11.6-14.6)
[2021-04-23 05:19] LABS: CHLORIDE 109 mEq/L (98-107)
[2021-04-23] MEDS: SODIUM CHLORIDE 0.9% INJ 3ML FLUSH IVF SCH (06:26)
[2021-04-23] MEDS: INSULIN LISPRO 100 UNITS/ML SUBCUT SCH ×2 (07:00→07:40)
[2021-04-23] MEDS: BLOOD SUGAR DIAGNOSTIC STRIP TEST SCH (07:11)
[2021-04-23 08:32] VITALS: BP 125/67
[2021-04-23] MEDS: ENOXAPARIN 30MG/0.3ML SYR SUBCUT SCH (09:00)
[2021-04-23] MEDS ORDERED: LEVOFLOXACIN 500MG PREMIX 100 ML IV SCH ×2 (11:00→16:00)
== END 2021-04-23 10:45 | disposition left against medical advice (07) | DRG 249 ==
LOC: ER 12:19 → MICUSO 18:18 → 8WST 04-23 07:38
PROVIDERS: ADMIT Internal Medicine; ATTEND Internal Medicine
DX: K52.9 Noninfective gastroenteritis and colitis, unspecified (principal); E11.9 Type 2 diabetes mellitus without complications; E86.0 Dehydration; J45.909 Unspecified asthma, uncomplicated; F12.90 Cannabis use, unspecified, uncomplicated; I10 Essential (primary) hypertension; Z53.21 Procedure and treatment not carried out due to patient leaving prior to being seen by health care provider
CPT/HCPCS: 36415; 71045; 74176; 80053; 80305; 81003; 82550; 82962; 83036; 85025; 93005; 99285; J1200; J1650; J1885; J1956; J2060; J2270; J2405; J2765; J3490; J7030

== ENCOUNTER 2021-05-25 07:53 | Inpatient (IN) | payer OTHER ==
[~2021-05-25] VITALS: Ht 198.1 cm; Wt 124.7 kg
[2021-05-25] MEDS ORDERED: ONDANSETRON 4MG ODT PO STA (08:25)
[2021-05-25] MEDS ORDERED: ACETAMINOPHEN 325MG TABLET PO STA (08:25)
[2021-05-25] MEDS ORDERED: KETOROLAC 30MG/ML VIAL IV STA (08:25)
[2021-05-25] MEDS ORDERED: MAGNESIUM/ALUMINUM HYDROXIDE/SIMETHICONE 30ML UDC PO STA (08:25)
[2021-05-25] MEDS ORDERED: ONDANSETRON HCL 4MG/2ML INJ IV STA (08:25)
[2021-05-25] MEDS ORDERED: METOCLOPRAMIDE HCL 10MG/2ML VIAL IV STA (08:25)
[2021-05-25] MEDS ORDERED: SODIUM CHLORIDE 0.9% 1,000 ML IV ONE (08:30)
[2021-05-25 09:22] LABS: BASOPHILS % 0.2 % (0.0-2.0); EOSINOPHILS % 0.2 % (0.0-5.0); HEMATOCRIT. 40.9 % (42.0-52.0); HEMOGLOBIN. 13.8 g/dL (14.0-18.0); LYMPHOCYTES % 7.3 % (20.0-50.0); MEAN CORPUSCULAR HEMOGLOBIN 32.5 pg (28.0-32.0); MEAN CORPUSCULAR VOLUME 96.1 fL (80.0-94.0); MEAN PLATELET VOLUME 8.1 fl (7.4-10.4); MONOCYTES % 2.7 % (2.0-8.0); NEUTROPHILS % 89.6 % (40.0-76.0); PLATELET 212 x1000/uL (130-400); RED BLOOD CELL COUNT 4.25 mill/uL (4.7-6.1); RED CELL DISTRIBUTION WIDTH 13.7 % (11.6-14.6)
[2021-05-25 09:28] LABS: CLARITY URINE CLEAR (CLEAR); COLOR URINE YELLOW (YELLOW); KETONES URINE 1+ (NEGATIVE); LEUKOCYTE ESTERASE URINE NEGATIVE (NEGATIVE); NITRITE URINE NEGATIVE (NEGATIVE); OCCULT BLOOD URINE NEGATIVE (NEGATIVE); PH URINE >=9.0 (4.5-8.0); PROTEIN URINE 1+ (NEGATIVE); SPECIFIC GRAVITY URINE 1.018 (1.005-1.030)
[2021-05-25 09:30] LABS: CHLORIDE 108 mEq/L (98-107)
[2021-05-25 09:34] LABS: ETHANOL BLOOD < 10 mg/dL
[2021-05-25] MEDS ORDERED: VISCOUS LIDOCAINE 2% 15 ML UDC MM ONE (11:00)
[2021-05-25] MEDS ORDERED: LORAZEPAM 2MG/ML CPJ IV ONE (11:00)
[2021-05-25] MEDS ORDERED: CAPSAICIN 0.025% CREAM 60GM TOP ONE (11:00)
[2021-05-25] MEDS ORDERED: LORAZEPAM 0.5MG TABLET PO PRN (15:45)
[2021-05-25] MEDS ORDERED: HYDROCODONE/ACETAMINOPHEN 10/325MG TABLET PO PRN (15:45)
[2021-05-25] MEDS ORDERED: MORPHINE SULFATE 2 MG/ML CPJ (NOT FOR IM USE) IV PRN (15:45)
[2021-05-25] MEDS ORDERED: HYDROCODONE/ACETAMINOPHEN 5/325MG TABLET PO PRN (15:45)
[2021-05-25] MEDS ORDERED: CLONIDINE 0.1MG TABLET PO PRN (15:45)
[2021-05-25] MEDS ORDERED: IPRATROPIUM/ALBUTEROL 0.5-3(2.5)MG/3ML NEB HHN PRN (15:45)
[2021-05-25] MEDS ORDERED: ONDANSETRON HCL 4MG/2ML INJ IV PRN (15:45)
[2021-05-25] MEDS ORDERED: SODIUM CHLORIDE 0.45% 1,000 ML IV SCH (16:00)
[2021-05-25] MEDS ORDERED: NALOXONE HCL 0.4MG/ML VIAL IV PRN (16:00)
[2021-05-25] MEDS: PANTOPRAZOLE SODIUM 40 MG/VIAL IV SCH (16:35)
[2021-05-25] MEDS ORDERED: FOLIC ACID 1 MG, THIAMINE HCL 100 MG, MVI, ADULT NO.1 10 ML in DEXTROSE 5% WATER 1,000 ML IV ONE (19:00)
[2021-05-25] MEDS: METOCLOPRAMIDE HCL 10MG/2ML VIAL IV SCH (19:58)
[2021-05-25 21:46] VITALS: BP 130/86
[2021-05-25] MEDS: SODIUM CHLORIDE 0.9% 1,000 ML IV SCH (22:23)
[2021-05-25] MEDS ORDERED: DEXTROSE 50% WATER 50ML SYRINGE IV PRN (23:00)
[2021-05-25] MEDS ORDERED: LORAZEPAM 2MG/ML CPJ IV PRN (23:00)
[2021-05-25] MEDS: CHLORDIAZEPOXIDE 25MG CAPSULE PO SCH (23:05)
[2021-05-26] VITALS: BP 134/75
[2021-05-26] MEDS: METOCLOPRAMIDE HCL 10MG/2ML VIAL IV SCH ×2 (00:09→05:59)
[2021-05-26] MEDS ORDERED: POTASSIUM CHLORIDE 20MEQ TABLET SR PO SCH (02:15)
[2021-05-26 04:00] VITALS: BP 126/76
[2021-05-26] MEDS: CHLORDIAZEPOXIDE 25MG CAPSULE PO SCH (06:00)
[2021-05-26] MEDS ORDERED: BLOOD SUGAR DIAGNOSTIC STRIP TEST SCH (07:20)
[2021-05-26] MEDS ORDERED: INSULIN LISPRO 100 UNITS/ML SUBCUT SCH (07:50)
[2021-05-26 08:12] VITALS: BP 130/78
[2021-05-26] MEDS: PANTOPRAZOLE SODIUM 40 MG/VIAL IV SCH (08:13)
[2021-05-26] MEDS: SODIUM CHLORIDE 0.9% 1,000 ML IV SCH (08:13)
[2021-05-26] MEDS ORDERED: AMLODIPINE 10MG TABLET PO SCH (09:00)
[2021-05-26] MEDS ORDERED: FAMO20TA8 MT (10:07)
[2021-05-28] MEDS ORDERED: FOLIC ACID 1 MG, THIAMINE HCL 100 MG, MVI, ADULT NO.1 10 ML in DEXTROSE 5% WATER 1,000 ML IV SCH (09:00)
== END 2021-05-26 10:26 | disposition left against medical advice (07) | DRG 249 ==
LOC: ER 07:53 → 6EST 15:06 → EDBEDREQ 15:12 → ENRESERV 19:23
PROVIDERS: ADMIT Internal Medicine; ATTEND Internal Medicine
DX: K52.9 Noninfective gastroenteritis and colitis, unspecified (principal); K75.9 Inflammatory liver disease, unspecified; D53.9 Nutritional anemia, unspecified; F10.10 Alcohol abuse, uncomplicated; F12.10 Cannabis abuse, uncomplicated; E11.9 Type 2 diabetes mellitus without complications; I10 Essential (primary) hypertension; Y90.0 Blood alcohol level of less than 20 mg/100 ml; F14.10 Cocaine abuse, uncomplicated; F17.210 Nicotine dependence, cigarettes, uncomplicated; J44.9 Chronic obstructive pulmonary disease, unspecified; Z53.29 Procedure and treatment not carried out because of patient's decision for other reasons; Z91.19 Patient's noncompliance with other medical treatment and regimen; Z71.6 Tobacco abuse counseling
CPT/HCPCS: 36415; 80053; 80076; 80320; 81003; 82962; 83036; 83605; 84484; 85025; 93005; 99285; C9113; J1885; J2060; J2405; J2765; J3411; J3490; J7030; J7070; G0480

== ENCOUNTER 2021-09-15 23:00 | Emergency (ER) | payer MEDICAID, OTHER ==
[~2021-09-15] VITALS: Ht 198.1 cm; Wt 124.7 kg
[~2021-09-15 23:00] MED LIST changes: +FAMO20TA8 MT
[2021-09-15] MEDS ORDERED: SODIUM CHLORIDE 0.9% 1,000 ML IV ONE (23:45)
[2021-09-16] MEDS ORDERED: KETOROLAC 30MG/ML VIAL IV ONE
[2021-09-16 00:04] LABS: BASOPHILS % 0.3 % (0.0-2.0); EOSINOPHILS % 0.2 % (0.0-5.0); HEMATOCRIT. 44.6 % (42.0-52.0); HEMOGLOBIN. 15.2 g/dL (14.0-18.0); LYMPHOCYTES % 20.5 % (20.0-50.0); MEAN CORPUSCULAR HEMOGLOBIN 31.9 pg (28.0-32.0); MEAN CORPUSCULAR VOLUME 93.6 fL (80.0-94.0); MEAN PLATELET VOLUME 8.8 fl (7.4-10.4); MONOCYTES % 9.8 % (2.0-8.0); NEUTROPHILS % 69.2 % (40.0-76.0); PLATELET 243 x1000/uL (130-400); RED BLOOD CELL COUNT 4.77 mill/uL (4.7-6.1); RED CELL DISTRIBUTION WIDTH 13.8 % (11.6-14.6)
[2021-09-16 00:07] LABS: CHLORIDE 98 mEq/L (98-107)
[2021-09-16] MEDS ORDERED: HALOPERIDOL LACTATE 5MG/ML VIAL IM ONE (00:30)
[2021-09-16] MEDS ORDERED: PIPERACILLIN/TAZ 3.375G PREMIX 50 ML IV SCH (00:45)
[2021-09-16] MEDS ORDERED: SODIUM CHLORIDE 0.9% 1000ML BAG (SEPSIS BOLUS) IV ONE (00:45)
[2021-09-16] MEDS ORDERED: VANCOMYCIN 1G PREMIX 200 ML IV SCH (01:00)
[2021-09-16] MEDS ORDERED: VANCOMYCIN 1GM PMX (XELLIA) 200 ML IV SCH (01:15)
[2021-09-16 02:35] VITALS: BP 112/78
== END 2021-09-16 04:01 | disposition home or self-care (01) ==
LOC: ER 23:00 → CANBEDREQ 09-16 21:28
DX: R10.9 Unspecified abdominal pain (principal); E86.0 Dehydration; M79.18 Myalgia, other site; R07.89 Other chest pain; Z20.822 Contact with and (suspected) exposure to COVID-19; I10 Essential (primary) hypertension
CPT/HCPCS: 36415; 71045; 80053; 83605; 83690; 84145; 85025; 87040; 87426; 93005; 96361; 96372; 96374; 99285; J1630; J1885; J3370; J7030